=== PATIENT | male | born 1965 | race Caucasian/White ===

== ENCOUNTER 2018-07-16 17:38 | Emergency (ER) | payer MEDICARE ==
[~2018-07-16] VITALS: Ht 177.8 cm; Wt 129.1 kg
[2018-07-16 18:35] LABS: HEMATOCRIT 51.5 % (39.0-50.0); HEMOGLOBIN 17.2 g/dl (14.0-18.0); IMMATURE GRANULOCYTES 0.5 % (0.0-5.0); MEAN CELL VOLUME 91.5 fL CALC (80.0-100.0); MEAN CORPUSCULAR HGB 30.6 pG CALC (26.0-32.0); MEAN CORPUSCULAR HGB CONC 33.4 g/L CALC (32.0-36.0); NEUT# 5.88 thou/uL (1.82-7.42); RED BLOOD COUNT 5.63 mill/uL (4.70-6.10); RED CELL DISTRI WIDTH 14.2 % (11.5-15.5)
[2018-07-16 18:47] LABS: BILIRUBIN, TOTAL 0.6 mg/dL (0.0-1.4); CREATININE 1.6 mg/dL (0.7-1.3); POTASSIUM 4.5 mmol/l (3.5-5.1); TOTAL PROTEIN 7.3 g/dL (6.3-8.2)
[2018-07-16] MEDS ORDERED: METOPROL TAR100 MG PO (19:35)
[2018-07-16] MEDS ORDERED: DONEPEZIL10 MG PO (19:36)
[2018-07-16] MEDS ORDERED: CORDARONE/200 MG/TAB PO (19:38)
[2018-07-16] MEDS ORDERED: GABAPENTIN300 M2 (19:38)
[2018-07-16] MEDS ORDERED: AMLODIPINE5 MG PO (19:41)
[2018-07-16] MEDS ORDERED: PAROXETINE10 M1 (19:41)
[2018-07-16 19:42] LABS: URINE BLOOD DIPSTICK NEGATIVE (NEGATIVE); URINE COLOR YELLOW; URINE GLUCOSE - DIPSTICK NEGATIVE (NEGATIVE); URINE KETONE NEGATIVE (NEGATIVE); URINE LEUK ESTERASE NEGATIVE (NEGATIVE); URINE NITRITE - DIPSTICK NEGATIVE (Negative); URINE PH 5.5 (4.5-8.0); URINE PROTEIN - DIPSTICK 100 mg/dL (NEG-TRACE); URINE SPECIFIC GRAVITY >=1.030; URINE UROBILINOGEN - DIPSTICK 0.2 E.U./dL (0.2)
[2018-07-16] MEDS ORDERED: LOSARTAN POT50 MG PO (19:42)
[2018-07-16 19:43] LABS: URINE BILIRUBIN - DIPSTICK NEGATIVE (NEGATIVE)
[2018-07-16] MEDS ORDERED: LEVEMIR FL100 UNIT/M SC (19:47)
[2018-07-16 19:49] LABS: URINE RBC 0-2 RBC/hpf (0-5); URINE WBC 0-2 WBC/hpf (0-5)
[2018-07-16] MEDS ORDERED: HUMALOG100 UNIT/M SC (19:49)
[2018-07-16] MEDS ORDERED: PROAIR HFA108 MCG/AC IN (19:51)
[2018-07-16] MEDS ORDERED: DOXYCYCL HYC100 MG PO (20:38)
[2018-07-16] MEDS ORDERED: PREDNISONE10 MG PO (20:38)
[2018-07-16 21:07] VITALS: BP 128/61
== END 2018-07-16 21:01 | disposition home or self-care (01) ==
LOC: ED 17:38
PROVIDERS: Family Medicine
DX: J44.1 Chronic obstructive pulmonary disease with (acute) exacerbation (principal); I12.9 Hypertensive chronic kidney disease with stage 1 through stage 4 chronic kidney disease, or unspecified chronic kidney disease; N18.3 Chronic kidney disease, stage 3 (moderate); M19.90 Unspecified osteoarthritis, unspecified site; F17.200 Nicotine dependence, unspecified, uncomplicated; R31.9 Hematuria, unspecified

== ENCOUNTER 2018-08-06 13:10 | Inpatient (IN) | payer MEDICARE ==
[~2018-08-06] VITALS: Ht 177.8 cm; Wt 130.1 kg
[~2018-08-06 13:10] MED LIST: AMLODIPINE5 MG PO; CORDARONE/200 MG/TAB PO; DONEPEZIL10 MG PO; DOXYCYCL HYC100 MG PO; GABAPENTIN300 M2; HUMALOG100 UNIT/M SC; LEVEMIR FL100 UNIT/M SC; LOSARTAN POT50 MG PO; METOPROL TAR100 MG PO; PAROXETINE10 M1; PREDNISONE10 MG PO; PROAIR HFA108 MCG/AC IN
--- NOTE | 2018-08-06 13:20 | NUR ---
PT ALERT TO PERSON. PER DAUGHTER PT WAS ACTING NORMAL LAST NIGHT WHEN HE WENT TO BED AT AN UNKNOWN TIME. DAUGHTER CHECKED ON HIM AT 0700 THIS AM AND REPORTS HE WAS SLEEPING. UPON WAKING APPROXIMATELY 30 MINS ACCOUNTS RECEIVABLE REPRESENTATIVE. PT AWOKE CONFUSED AND DID NOT RECOGNIZE DAUGHTER. PT ALERT TO PERSON ONLY AT THIS TIME. TEMP 102.0. PERRLA AT A +2. PT C/O NOT FEELING RIGHT AND VAGUE ABD PAIN. ABD OBESE, BS ACTIVE X4. ABD SOFT, NON TENDER UPON PALPATION. STROKE ASSESSMENT COMPLETED. NIH 1 AT THIS TIME.
--- NOTE | 2018-08-06 13:25 | NUR ---
PT CALLING OUT FOR MOTHER. PER DAUGHTER HIS MOTHER HAS .
--- NOTE | 2018-08-06 13:35 | NUR ---
2ND IV SITE INITIATED. LABS AND BC X 2 COLLECTED. IV VANCO INITIATED PER ORDER. AWARE OF 102.0 TEMP, AWAITING NEW ORDERS.
[2018-08-06 13:45] LABS: HEMATOCRIT 46.2 % (39.0-50.0); HEMOGLOBIN 15.5 g/dl (14.0-18.0); IMMATURE GRANULOCYTES 0.4 % (0.0-5.0); MEAN CELL VOLUME 91.5 fL CALC (80.0-100.0); MEAN CORPUSCULAR HGB 30.7 pG CALC (26.0-32.0); MEAN CORPUSCULAR HGB CONC 33.5 g/L CALC (32.0-36.0); NEUT# 6.39 thou/uL (1.82-7.42); RED BLOOD COUNT 5.05 mill/uL (4.70-6.10); RED CELL DISTRI WIDTH 13.9 % (11.5-15.5)
--- NOTE | 2018-08-06 13:47 | NUR ---
PT TO AGUILAAY ACCOMPANIED BY WORK STUDY STUDENT.
--- NOTE | 2018-08-06 14:00 | NUR ---
PT RETURNED FROM CT SCAN, IV FLUIDS AND OFIRMEV INITAIED PER ORDER. PT REMAINS ALERT TO PERSON ONLY. PT ASKING FOR DAUGHTER, PT INFOMRED THAT SHE WENT HOME AND WILL RETURN.
[2018-08-06] MEDS ORDERED: LEVEMIR100 UNIT/M SC (14:07)
--- NOTE | 2018-08-06 14:10 | NUR ---
PT PROVIDED URINE SAMPLE. IV FLUIDS AND ABX INFUSING WITH NO DIFFICULTY. IV SITES FREE FROM REDNESS OR EDEMA AT THIS TIME. PT A&O X 2 AND CONVERSING WITH STAFF.
--- NOTE | 2018-08-06 14:15 | NUR ---
PT STATES "MY MOM , I DON'T KNOW WHY I WAS ASKING FOR HER".
--- NOTE | 2018-08-06 14:20 | NUR ---
PT MORE ALERT AT THIS TIME. PT ORIENTED TO PERSON AND PLACE. WHEN ASKING ABOUT TIME PT STATES "I NEVER KEEP TRACK OF THE TIME BECAUSE I DON'T DO ANYTHING". LARGE SCAR NOTED BELOW THE LEFT SIDE SCAPULA. WHEN ASKED PT ABOUT IT HE REPORTS A SPONTANIOUS PNEUMOTHOARX IN 2011. PT STAYE
--- NOTE | 2018-08-06 14:20 | NUR ---
PT MORE ALERT AT THIS TIME. PT ORIENTED TO PERSON AND PLACE. WHEN ASKING ABOUT TIME PT STATES "I NEVER KEEP TRACK OF THE TIME BECAUSE I DON'T DO ANYTHING". A LARGE SCAR NOTED BELOW THE LEFT SIDE SCAPULA. WHEN ASKED PT ABOUT IT HE REPORTS THAT HE HAD A SPNOTANIOUS PNEUMOTHORAX IN 2011. PT STATES "PART OF THAT LEFT LUNG WASN'T WORKING BUT MAYBE IT IS NOW". NOTIFIED.
[2018-08-06 14:25] LABS: ALBUMIN 3.8 g/dL (3.2-5.0); ALKALINE PHOSPHATASE 87 u/l (38-126); ANION GAP 14 (6-22 (CALC)); BILIRUBIN, TOTAL 0.6 mg/dL (0.0-1.4); BUN 22 mg/dL (9-20); BUN/CREATININE RATIO 15 (12-20 (CALC)); CARBON DIOXIDE 25 mmol/l (22-30); CHLORIDE 103 mmol/l (95-108); CREATININE 1.5 mg/dL (0.7-1.3); GFR 49 ML/MIN (>=60 (CALC)); GFR FOR AFR.AMER. 59 ML/MIN (>=60 (CALC)); LIPASE 111 u/l (23-300); POTASSIUM 4.7 mmol/l (3.5-5.1); SGOT/AST 26 u/l (17-59); SODIUM 137 mmol/l (137-146); TOTAL PROTEIN 6.9 g/dL (6.3-8.2)
[2018-08-06 14:27] LABS: URINE BILIRUBIN - DIPSTICK NEGATIVE (NEGATIVE); URINE BLOOD DIPSTICK TRACE-INTACT (NEGATIVE); URINE COLOR YELLOW; URINE GLUCOSE - DIPSTICK NEGATIVE (NEGATIVE); URINE KETONE NEGATIVE (NEGATIVE); URINE LEUK ESTERASE NEGATIVE (NEGATIVE); URINE NITRITE - DIPSTICK NEGATIVE (Negative); URINE PROTEIN - DIPSTICK 100 mg/dL (NEG-TRACE); URINE UROBILINOGEN - DIPSTICK 0.2 E.U./dL (0.2)
--- NOTE | 2018-08-06 14:30 | NUR ---
TEMP RECHECK 100.5.
[2018-08-06 14:37] LABS: BARBITURATES NEGATIVE (NEGATIVE); COCAINE NEGATIVE (NEGATIVE); METHADONE NEGATIVE (NEGATIVE); OXCYCODONE NEGATIVE (NEGATIVE); TETRAHYDROCANNABIONOL POSITIVE (NEGATIVE); TRICYLIC ANTIDEPRESSANTS NEGATIVE (NEGATIVE)
--- NOTE | 2018-08-06 14:40 | NUR ---
RIGHT SIDED AC IV SITE INFILTRATED. IV SITE REMOVED.
[2018-08-06 14:43] LABS: URINE SQUAMOUS EPITHELIAL CELL FEW EPI/hpf (0-FEW)
--- NOTE | 2018-08-06 15:21 | NUR ---
PT A&O X3 AT THIS TIME. PT REPORTS HISTORY OF CHONIC NECK AND BACK PAIN WORSENING WHEN IT GETS COLD. PT DENIES ANY NEW NECK PAIN. NO NUCHAL RIGIDITY NOTED. PT RESTING COMFORTABLY IN STRETCHER RAC IV SITE REMAINS INTACT IV FLUIDS INFUSING WITH NO DIFFICULTY. CALL PLATT WITHIN REACH, DAUGHTER AT [facility].
--- NOTE | 2018-08-06 16:00 | NUR ---
PT RESTING COMFORTABLY IN STRETCHER IN NAD. RESP EVEN AND UNLABIRED. O2 TITRATED DOWN TO 2L NC SA02 98%.
--- NOTE | 2018-08-06 16:30 | NUR ---
MD AT BEDSIDE TO DISCUSS RESULTS AND PLAN FOR ADMISSION.
--- NOTE | 2018-08-06 17:10 | NUR ---
REPORT CALLED TO CIRILO RICHARDSON.
--- NOTE | 2018-08-06 17:20 | NUR ---
Admission Note Report Given to: CIRILO RICHARDSON Transported by: Wheelchair X Stretcher Transported with: X Nurse Transporter X Patent IV X O2 X Commercial Attache PT TO ROOM 260 VIA STRETCHER WITH TELE MONITOR. PT TRANSFERRED TO STRETCHER WITH 1 ASSIST. CARE RELINQUISHED TO CIRILO RICHARDSON.
--- NOTE | 2018-08-06 17:20 | NUR ---
PT TRANSFERED TO FLOOR VIA STRETCHER W/ O2 @ 2L ACCOMPANIED BY ER STAFF. PT AMULATED TO BED GAIT WEAK AND UNSTEADY 1 ASSIST. EXERSIONAL SOB. RESPIRATIONS LABORED ON O2 @ 2L. WHEEZING NOTED THROUGH OUT LUNGS. PEDAL PULSES STRONG. TELE MONITOR IN PLACE.EMS IV # 20 LAC, PATENT, APPEARS HEALTHY. SKIN INTACT, COOL/DRY. PT REPORTS NAUSEA, VOMITED 150ML, CLEAR YELLOW. PT SHIVERING. TEMP 99.0, TYLENOL GIVEN PO. ACCUCHECK COMPLETED RESULTS OF 97. PT DENIES ANY PAIN, PAIN SCALE EDUCATED. PT DENIES ANY NEEDS AT CURRENT TIME. PT ENCOURAGED TO CALL IF NEEDS SHOULD ARISE. HOME MEDICATIONS AT BEDSIDE, DAUGHTER TO TAKE HOME. FALL PRECAUTIONS IN PLACE. CALL LIGHT WITHIN REACH. WILL CONTINUE TO MONITOR.
[2018-08-06 17:36] VITALS: BP 145/93
--- NOTE | 2018-08-06 18:20 | NUR ---
PT NAUSEOUS VOMITING 150CC OF YELLOW/CLEAR BILE,EMESIS BAGS PROVIDED AND NOTIFIED.NEW ORDERS RECEIVED AT THIS TIME.
--- NOTE | 2018-08-06 18:33 | NUR ---
PT MEDICATED WITH PRN ZOFRAN 4MG IVP FOR NAUSEA/VOMIT AT THIS TIME,WILL MONITOR FOR EFFECTIVENESS
[2018-08-06 18:51] VITALS: BP 123/69
--- NOTE | 2018-08-06 19:20 | NUR ---
REPORT FROM DYLAN KRER. PT RESTING IN BED WITH VISITORS AT BEDSIDE. PT [place]. ALERT AND ORIENTED. PT DENIES ANY PAIN OR DISCOMFORT. TEMP 99.3. RESPIRATIONS EVEN AND UNLABORED. IV SITE APPEARS HEALTHY. DISCUSSED POC. EDUCATED PT ON SAFETY PRECAUTIONS. PT VERBALIZED UNDERDTANDING. CALL LIGHT WITHIN REACH. WILL CONTINUE TO MONITOR.
--- NOTE | 2018-08-07 00:01 | NUR ---
PT RESTING IN BED WITH EYES CLOSED. RESPIRATIONS EVEN AND UNLABORED. O2 AT 2L/M VIA NC IN PLACE. PT REMAINS AFEBRILE AT THIS TIME. CALL LIGHT WITHIN REACH. WILL CONTINUE TO MONITOR.
[2018-08-07 00:02] VITALS: BP 128/64
[2018-08-07 04:00] VITALS: BP 143/83
--- NOTE | 2018-08-07 04:00 | NUR ---
PHLEBOTOMY IN ROOM TO OBTAIN LABS AT THIS TIME.
[2018-08-07 05:09] LABS: HEMATOCRIT 45.4 % (39.0-50.0); IMMATURE GRANULOCYTES 0.5 % (0.0-5.0); MEAN CELL VOLUME 92.3 fL CALC (80.0-100.0); MEAN CORPUSCULAR HGB 30.5 pG CALC (26.0-32.0); NEUT# 5.28 thou/uL (1.82-7.42); RED BLOOD COUNT 4.92 mill/uL (4.70-6.10); RED CELL DISTRI WIDTH 14.4 % (11.5-15.5)
[2018-08-07 05:31] LABS: ALBUMIN 3.5 g/dL (3.2-5.0); ALKALINE PHOSPHATASE 77 u/l (38-126); AMYLASE 67 u/l (30-110); ANION GAP 15 (6-22 (CALC)); BILIRUBIN, TOTAL 0.4 mg/dL (0.0-1.4); BUN 19 mg/dL (9-20); BUN/CREATININE RATIO 14 (12-20 (CALC)); CARBON DIOXIDE 24 mmol/l (22-30); CHLORIDE 106 mmol/l (95-108); CREATININE 1.3 mg/dL (0.7-1.3); GFR 58 ML/MIN (>=60 (CALC)); GFR FOR AFR.AMER. > 60 ML/MIN (>=60 (CALC)); LIPASE 160 u/l (23-300); MAGNESIUM 1.7 mg/dL (1.6-2.3); POTASSIUM 4.2 mmol/l (3.5-5.1); SGOT/AST 31 u/l (17-59); SODIUM 141 mmol/l (137-146); TOTAL PROTEIN 6.3 g/dL (6.3-8.2)
[2018-08-07 09:21] VITALS: BP 152/76
--- NOTE | 2018-08-07 09:21 | NUR ---
PT RESTING IN BED, PT IS REDDING, ALERT AND ORIENTED X3. RESP EVEN AND UNLABORED. DISCUSSED POC, PT IN AGREEMENT. PT REQUESTING SOME OF HIS HOME MEDS, PER MD REQUESTS TO HOLD MEDICATION AT THIS TIME. ASSESSMENT COMPLETED, CALL LIGHT IN REACH,CONTINUE TO MONITOR.
[2018-08-07 10:55] VITALS: BP 154/68
--- NOTE | 2018-08-07 11:04 | NUR ---
TYLENOL GIVEN FOR TEMP OF 100.4 PT UP TO SHOWER. NO SIGNS OF DISTRESS NOTED, RESP EVEN AND UNLABORED. ASSISTED IN AMBULATING WITH WALKER. CONTINUE TO MONITOR.
--- NOTE | 2018-08-07 11:48 | NUR ---
IS TEACHING PROVIDED, PT ABLE TO REACH 1500ML, TOLERATED WELL, ENCOURAGED USE 10X PER HR EVERY HR WHILE AWAKE, PT VERBALIZED UNDERSTANDING. CALL LIGHT IN REACH,CONTINUE TO MONITOR.
[2018-08-07 15:20] VITALS: BP 162/84
[2018-08-07 15:45] LABS: CHOLESTEROL HDL RATIO 5.9 (<4.4 (CALC))
--- NOTE | 2018-08-07 19:00 | NUR ---
BEDSIDE REPORT RECEIVED FROM BOO SWENSON. PT RESTING IN BED IN SEMI FOWLERS; ALERT AND ORIENTED. LABORED BREATHING ON ROOM AIR; PT STATES THAT HE JUST GOT BACK IN BED FROM AMBULATING TO THE BATHROOM. OXYGEN APPLIED AND HOB ELEVATED; EDUCATED ON BREATHING TECHNIQUES. DENIES PAIN. NEW IV STARTED AND ABT RESUMED. PLAN OF CARE REVIEWED. PT ENCOURAGED TO VERABLIZE CONCERNS. STATES UNDERSTANDING. SAFETY MEASURES IN PLACE. CALL LIGHT WITHIN REACH.
[2018-08-07 19:58] VITALS: BP 134/73
--- NOTE | 2018-08-08 00:19 | NUR ---
PT AWAKENED AND WAS CONFUSED TO PLACE; REORIENTED AND EXPLAINED TO PT WHY HE WAS HERE IN THE HOSPITAL. PT BECAME TEARFUL AND ASKED IF HIS DAUGHTER HAD HIS DOG. PT ENCOURAGED TO TALK ABOUT HOW HE WAS FEELING AND STATES, "I JUST ALWAYS SICK." PT ASKED IF HE WOULD LIKE TO MAKE ANY PHONE CALLS AND HE DECINED. ONLY REQUESTED A GINGERALE. AMBULATES TO THE BATHROOM WITH ONE PERSON ASSIST AND USES BEDSIDE URINAL TO VOID. CALL LIGHT SYSTEM REVIEWED AND WITHIN REACH.
[2018-08-08 00:35] VITALS: BP 140/64
[2018-08-08 04:40] VITALS: BP 190/96
--- NOTE | 2018-08-08 04:58 | NUR ---
BLOOD PRESSURE ELEVATED AT 190/96 PULSE OF 74; PT HAS FACIAL REDNESS AND GETS ANXIOUS UPON AWAKENING. NEEDS REORIENTING WHEN HE WAKES. DR. SOLO NOTIFIED OF BP; NEW ORDER FOR ONE TIME DOSE OF LABETOLOL.
[2018-08-08 05:30] LABS: HEMATOCRIT 47.6 % (39.0-50.0); HEMOGLOBIN 15.8 g/dl (14.0-18.0); IMMATURE GRANULOCYTES 0.5 % (0.0-5.0); MEAN CELL VOLUME 92.1 fL CALC (80.0-100.0); MEAN CORPUSCULAR HGB 30.6 pG CALC (26.0-32.0); MEAN CORPUSCULAR HGB CONC 33.2 g/L CALC (32.0-36.0); NEUT# 3.69 thou/uL (1.82-7.42); RED BLOOD COUNT 5.17 mill/uL (4.70-6.10); RED CELL DISTRI WIDTH 13.9 % (11.5-15.5)
[2018-08-08 05:52] LABS: ANION GAP 18 (6-22 (CALC)); BUN 24 mg/dL (9-20); BUN/CREATININE RATIO 18 (12-20 (CALC)); CARBON DIOXIDE 24 mmol/l (22-30); CHLORIDE 103 mmol/l (95-108); CREATININE 1.3 mg/dL (0.7-1.3); GFR 58 ML/MIN (>=60 (CALC)); GFR FOR AFR.AMER. > 60 ML/MIN (>=60 (CALC)); MAGNESIUM 1.6 mg/dL (1.6-2.3); POTASSIUM 4.9 mmol/l (3.5-5.1); SODIUM 139 mmol/l (137-146)
[2018-08-08 06:38] VITALS: BP 141/87
--- NOTE | 2018-08-08 06:38 | NUR ---
BLOOD PRESSURE IMPROVED; 141/87. PT APPEARS MORE RELAXED. OXYGEN TUBING ON FOREHEAD; REPLACED TO NARES AND ENCOURAGED TO PT TO LEAVE OXYGEN IN PLACE DUE TO SOB WITH MINIMAL EXERTION. STATES UNDERSTANDING AND USING IS AT BEDSIDE.
[2018-08-08 08:02] VITALS: BP 166/69
--- NOTE | 2018-08-08 12:10 | NUR ---
PT MEDICATED WITH INSULIN,PT VOICES NO COMPLAINTS AT THIS TIME, CALL LIGHT IN REACH
[2018-08-08 14:55] VITALS: BP 148/59
--- NOTE | 2018-08-08 19:00 | NUR ---
REPORT RECIEVED FROM LEELA. DAUGHTER CONCERN ABOUT DEPRESSION MEDICATION PAREXOTINE BEING ON HOLD. COCNTACT CHON NEWMAN. MEDCIATION RESTATRED. POC DISCUUSED. PT VOICED UNDERSTAIND. BED IN LOWEST POSIION. CALL LIGHT IN REACH. WILL MONITOR.
[2018-08-08 19:17] VITALS: BP 186/85
--- NOTE | 2018-08-08 21:00 | NUR ---
PT RESTING IN BED. A/OX3 LABORED BREATHING NOTED. WDUCATED TO LEFT HOB. PT ON O2 2L. BS COVERED PER ORDERS AND DIABETIC SNACK GIVEN. PT ENCOURAGED TO USE i/s. PT SEEMS ANXIOUS AND CONFUSED AT TIMES. PT REDIRECTED. IV PATENT. CALL LIGHT IN REACH. WILL CONTINUE TO MONIOTR.
[2018-08-09] VITALS (8 sets, daily range): BP systolic 90–161; BP diastolic 46–83
--- NOTE | 2018-08-09 04:45 | NUR ---
COLLABORATIVE TEACHER ATTEMPTED TO GET LABS THIS MORNING.COLLABORATIVE TEACHER WAS SUCCESSFUL BUT DIDNT COLLECT ENOUGH BLOOD. PT REFUSED TO BE STUCK AGAIN. WILL RETRY LAB WORK IN THE MORNING.
[2018-08-09 05:58] LABS: HEMATOCRIT 46.4 % (39.0-50.0); IMMATURE GRANULOCYTES 0.5 % (0.0-5.0); MEAN CELL VOLUME 90.1 fL CALC (80.0-100.0); MEAN CORPUSCULAR HGB 31.1 pG CALC (26.0-32.0); MEAN CORPUSCULAR HGB CONC 34.5 g/L CALC (32.0-36.0); NEUT# 8.31 thou/uL (1.82-7.42); RED BLOOD COUNT 5.15 mill/uL (4.70-6.10); RED CELL DISTRI WIDTH 14.1 % (11.5-15.5)
[2018-08-09 06:17] LABS: ANION GAP 20 (6-22 (CALC)); BUN 27 mg/dL (9-20); BUN/CREATININE RATIO 20 (12-20 (CALC)); CARBON DIOXIDE 20 mmol/l (22-30); CHLORIDE 102 mmol/l (95-108); CREATININE 1.3 mg/dL (0.7-1.3); GFR 58 ML/MIN (>=60 (CALC)); GFR FOR AFR.AMER. > 60 ML/MIN (>=60 (CALC)); MAGNESIUM 1.6 mg/dL (1.6-2.3); POTASSIUM 4.5 mmol/l (3.5-5.1); SODIUM 138 mmol/l (137-146)
--- NOTE | 2018-08-09 08:30 | NUR ---
PT RESTING IN BED, NO SIGNS OF DISTRESS NOTED, RESP EVEN AND UNLABORED ON RA. ALERT AND ORIENTED X3, NO CONFUSION. DISCUSSED POC, PT VOICES NO NEEDS OR COMPLAINTS AT THIS TIME. ASSESSMENT COMPLETED, CALL LIGHT IN REACH,CONTINUE TO MONITOR.
--- NOTE | 2018-08-09 12:00 | NUR ---
PT MEDICATED WITH INSULIN, PT VOICES NO NEEDS OR COMPLAINTS AT THIS TIME. CALL LIGHT IN REACH,CONTINUE TO MONITOR.
--- NOTE | 2018-08-09 19:00 | NUR ---
REPORT FROM LEELA HADDAD. PT SITTING UP IN BED. ALERT AND ORIENTED. RESPIRATIONS EVEN AND UNLABORED. PT DENIES ANY PAIN OR DISCOMFORT. IV SITE APPEARS HEALTHY. DISCUSSED POC. ENCOURAGED SAFETY PRECAUTIONS. CALL LIGHT WITHIN REACH. WILL CONTINUE MONITOR.
--- NOTE | 2018-08-09 23:20 | NUR ---
PT RESTING IN BED WITH EYES CLOSED SNORING. RESPIRATIONS EVEN AND UNLABORED. NO S/S OF PAIN NOTED. CALL LIGHT WITHIN REACH. WILL CONTINUE TO MONITOR.
[2018-08-10 04:36] VITALS: BP 138/55
[2018-08-10 05:18] LABS: ANION GAP 17 (6-22 (CALC)); BUN 28 mg/dL (9-20); BUN/CREATININE RATIO 23 (12-20 (CALC)); CARBON DIOXIDE 23 mmol/l (22-30); CHLORIDE 104 mmol/l (95-108); CREATININE 1.2 mg/dL (0.7-1.3); GFR > 60 ML/MIN (>=60 (CALC)); GFR FOR AFR.AMER. > 60 ML/MIN (>=60 (CALC)); MAGNESIUM 1.7 mg/dL (1.6-2.3); SODIUM 139 mmol/l (137-146)
--- NOTE | 2018-08-10 07:00 | NUR ---
REPORT RECEIVED FROM BOO MORAES. PT SLEEPING IN BED. NO SIGND OR SYMPTOMS OF DISTRESS. SAFETY PRECAUTIONS IN PLACE WILL, CONTINUE TO MONITOR.
[2018-08-10 07:28] VITALS: BP 155/92
--- NOTE | 2018-08-10 08:00 | NUR ---
PT SLEEPING IN BED, DIFFICULT TO AROUSE. VS OBTAINED AND ASSESSMENT COMPLETED. RESPIRATIONS LABORED RT TO PT BEING DROWSY AND CHRONIC SLEEP APNEA. O2 PLACED ON PT @ 2L VIA NC DUE TO SLEEP APNEA. LUNGS CLEAR/DIMINISHED. PEDAL PULSES STRONG. TELE MONITOR IN PLACE. IV #22 RT FOREARM, PATENT, APPEARS HEALTHY. SAFETY PRECAUTIONS IN PLACE. CALL LIGHT WITHIN REACH. WILL CONTINUE TO MONITOR.
[2018-08-10 11:30] VITALS: BP 161/78
[2018-08-10] MEDS ORDERED: MEDDOSEPAK PO (11:30)
[2018-08-10] MEDS ORDERED: LIPITOR20 M1 PO (11:30)
[2018-08-10] MEDS ORDERED: DOXYCYC MONO100 M2 PO (11:30)
--- NOTE | 2018-08-10 11:55 | NUR ---
AT BEDSIDE DISCUSSING POC.
--- NOTE | 2018-08-10 12:23 | NUR ---
PT RESTING IN BED. DAUGHTER AT BEDSIDE. RESPIRATIONS EVEN AND UNLABORED, ON O2 VIA NC @ 2L. TELE MONITOR IN PLACE. NO SIGNS OR SYMPTOMS OF DISTRESS AT THIS TIME. SAFETY PRECAUTIONS IN PLACE. CALL LIGHT WITHIN REACH. WILL CONTINUE TO MONITOR.
--- NOTE | 2018-08-10 13:09 | NUR ---
PT RESTING IN BED, DAUGHTER AT BEDSIDE. PT PROVIDED WITH DISCHARGE EDUCATION, MEDICATIONS PRESCRIPTIONS, AND SLIDING SCALE. PT VERBALIZED UNDERSTANDING. IV #22 RT FOREARM REMOVED, CATHETER INTACT. TELE ROMOVED.
--- NOTE | 2018-08-10 13:22 | NUR ---
Discharge instructions given. Patient verbalizes understanding of same. Discharged in stable condition via Wheelchair to Home with volunteer. All belongings sent with pt.
== END 2018-08-10 13:23 | disposition home or self-care (01) | DRG 190 ==
LOC: ED 13:10 → ED-I 15:00 → ED 16:49 → MS2 16:50
PROVIDERS: Emergency Medicine; Nurse Practitioner Family; ADMIT Internal Medicine Nephrology; ATTEND Internal Medicine Nephrology
DX: J44.1 Chronic obstructive pulmonary disease with (acute) exacerbation (principal); J18.9 Pneumonia, unspecified organism; Z68.41 Body mass index [BMI] 40.0-44.9, adult; G93.1 Anoxic brain damage, not elsewhere classified; I13.10 Hypertensive heart and chronic kidney disease without heart failure, with stage 1 through stage 4 chronic kidney disease, or unspecified chronic kidney disease; E11.22 Type 2 diabetes mellitus with diabetic chronic kidney disease; N18.3 Chronic kidney disease, stage 3 (moderate); J44.0 Chronic obstructive pulmonary disease with (acute) lower respiratory infection; F03.90 Unspecified dementia, unspecified severity, without behavioral disturbance, psychotic disturbance, mood disturbance, and anxiety; I71.2 Thoracic aortic aneurysm, without rupture; F17.210 Nicotine dependence, cigarettes, uncomplicated; M19.90 Unspecified osteoarthritis, unspecified site; G47.33 Obstructive sleep apnea (adult) (pediatric); E66.9 Obesity, unspecified; E78.5 Hyperlipidemia, unspecified; Z79.4 Long term (current) use of insulin; Z95.828 Presence of other vascular implants and grafts; Z91.19 Patient's noncompliance with other medical treatment and regimen; Z86.74 Personal history of sudden cardiac arrest
CPT/HCPCS: G0378; J0131; J1650

== ENCOUNTER 2018-12-11 21:42 | Emergency (ER) | payer MEDICARE ==
[~2018-12-11] VITALS: Ht 177.8 cm; Wt 145.5 kg
[~2018-12-11 21:42] MED LIST changes: +DOXYCYC MONO100 M2 PO; +LEVEMIR100 UNIT/M SC; +LIPITOR20 M1 PO; +MEDDOSEPAK PO
[2018-12-11 22:13] LABS: HEMATOCRIT 47.5 % (39.0-50.0); HEMOGLOBIN 15.4 g/dl (14.0-18.0); IMMATURE GRANULOCYTES 1.2 % (0.0-5.0); MEAN CELL VOLUME 93.1 fL CALC (80.0-100.0); MEAN CORPUSCULAR HGB 30.2 pG CALC (26.0-32.0); MEAN CORPUSCULAR HGB CONC 32.4 g/L CALC (32.0-36.0); NEUT# 4.23 thou/uL (1.82-7.42); RED BLOOD COUNT 5.1 mill/uL (4.70-6.10); RED CELL DISTRI WIDTH 13.1 % (11.5-15.5)
[2018-12-11 22:31] LABS: ACT PARTIAL THROMBO TIME 27.7 SECONDS (20.0-32.5); ALBUMIN 4.1 g/dL (3.2-5.0); ALKALINE PHOSPHATASE 87 u/l (38-126); ANION GAP 12 (6-22 (CALC)); BILIRUBIN, TOTAL 0.4 mg/dL (0.0-1.4); BUN 26 mg/dL (9-20); BUN/CREATININE RATIO 17 (12-20 (CALC)); CARBON DIOXIDE 25 mmol/l (22-30); CHLORIDE 108 mmol/l (95-108); CREATININE 1.5 mg/dL (0.7-1.3); GFR 49 ML/MIN (>=60 (CALC)); GFR FOR AFR.AMER. 59 ML/MIN (>=60 (CALC)); POTASSIUM 4.2 mmol/l (3.5-5.1); PROTHROMBIN TIME 10.7 SECONDS (9.0-12.5); SGOT/AST 22 u/l (17-59); SODIUM 141 mmol/l (137-146); TOTAL PROTEIN 6.8 g/dL (6.3-8.2)
[2018-12-11 22:43] LABS: MYOGLOBIN 79 ng/mL (0 - 121)
[2018-12-12 03:10] VITALS: BP 133/91
== END 2018-12-12 03:10 | disposition short-term general hospital (02) ==
LOC: ED 21:42
PROVIDERS: Emergency Medicine
DX: I48.91 Unspecified atrial fibrillation (principal); R07.9 Chest pain, unspecified; R53.1 Weakness; E11.9 Type 2 diabetes mellitus without complications; I10 Essential (primary) hypertension; F17.200 Nicotine dependence, unspecified, uncomplicated; Z86.73 Personal history of transient ischemic attack (TIA), and cerebral infarction without residual deficits; R06.02 Shortness of breath

== ENCOUNTER 2022-12-24 15:33 | Emergency (ER) | payer MEDICARE ==
[~2022-12-24] VITALS: Ht 177.8 cm; Wt 111.0 kg
[2022-12-24] VITALS (14 sets, daily range): BP systolic 125–207; BP diastolic 70–132
[~2022-12-24 15:33] MED LIST changes: +ASPIRIN325 MG PO; -GABAPENTIN300 M2; +GABAPENTIN300 M2 PO; +HYDRALAZINE50 MG PO; +SPIRIVA HANDIHALER IN; +TRICOR145 MG PO; +VITAMIN D22000 UNIT PO
[2022-12-24 16:08] LABS: BASO% 0.3 % (0-3); EOS% 0.7 % (0-8); HEMATOCRIT 50.5 % (39.0-50.0); HEMOGLOBIN 16.1 g/dl (14.0-18.0); IMMATURE GRANULOCYTES 0.3 % (0.0-5.0); LYMPH% 7.1 % (15-41); MEAN CELL VOLUME 89.2 fL CALC (80.0-100.0); MEAN CORPUSCULAR HGB 28.4 pG CALC (26.0-32.0); MEAN CORPUSCULAR HGB CONC 31.9 g/dL CAL (32.0-36.0); MONO% 4.3 % (2-13); NEUT# 10.39 thou/uL (1.82-7.42); NEUT% 87.3 % (42-76); RED BLOOD COUNT 5.66 mill/uL (4.70-6.10); RED CELL DISTRI WIDTH 13.6 % (11.5-15.5)
[2022-12-24 16:17] LABS: ALBUMIN 4.8 g/dL (3.2-5.0); BILIRUBIN, TOTAL 1.4 mg/dL (0.2-1.3); CREATININE 1.5 mg/dL (0.7-1.3); POTASSIUM 4.4 mmol/l (3.5-5.1); TOTAL PROTEIN 8.5 g/dL (6.3-8.2)
[2022-12-24 18:20] LABS: URINE BILIRUBIN - DIPSTICK NEGATIVE (NEGATIVE); URINE BLOOD DIPSTICK SMALL (NEGATIVE); URINE COLOR YELLOW; URINE GLUCOSE - DIPSTICK >=1000 mg/dL (NEGATIVE); URINE KETONE 40 mg/dL (NEGATIVE); URINE LEUK ESTERASE NEGATIVE (NEGATIVE); URINE PH 6.5 (4.5-8.0); URINE PROTEIN - DIPSTICK >=300 mg/dL (NEG-TRACE); URINE UROBILINOGEN - DIPSTICK 0.2 E.U./dL (0.2)
[2022-12-24 18:24] LABS: URINE NITRITE - DIPSTICK NEGATIVE (Negative)
[2022-12-24 18:33] LABS: URINE WBC 0-2 WBC/hpf (0-5)
== END 2022-12-24 22:38 | disposition short-term general hospital (02) ==
LOC: ED 15:33
PROVIDERS: Family Medicine
DX: I97.89 Other postprocedural complications and disorders of the circulatory system, not elsewhere classified (principal); I71.23 Aneurysm of the descending thoracic aorta, without rupture; E11.9 Type 2 diabetes mellitus without complications; I11.0 Hypertensive heart disease with heart failure; I50.9 Heart failure, unspecified; J44.9 Chronic obstructive pulmonary disease, unspecified; F03.90 Unspecified dementia, unspecified severity, without behavioral disturbance, psychotic disturbance, mood disturbance, and anxiety; G47.33 Obstructive sleep apnea (adult) (pediatric); Y83.2 Surgical operation with anastomosis, bypass or graft as the cause of abnormal reaction of the patient, or of later complication, without mention of misadventure at the time of the procedure; Z95.828 Presence of other vascular implants and grafts; Z95.0 Presence of cardiac pacemaker; Z79.4 Long term (current) use of insulin; Z86.73 Personal history of transient ischemic attack (TIA), and cerebral infarction without residual deficits
CPT/HCPCS: Q9967